=== PATIENT | female | born 1960 | race Caucasian/White ===

== ENCOUNTER → 2025-03-03 15:24 | Outpatient (REF) | payer MEDICARE, OTHER, SELFPAY | LOC: RAD 15:24 | PROVIDERS: ATTENDING PHYSICIAN Nurse Practitioner | DX: S09.90XA Unspecified injury of head, initial encounter (principal) | CPT/HCPCS: 70450 ==

== ENCOUNTER 2025-05-19 18:29 | Emergency (ER) | payer MEDICARE, OTHER, SELFPAY ==
[2025-05-19 18:40] VITALS: BP 185/106
[2025-05-19 18:55] LABS: Hematocrit 34.8 % (37.0-47.0); Hemoglobin 12.8 g/dL (12.0-16.0); Mean Corp Hgb Conc. 36.8 g/dL (33.0-37.0); Mean Corpuscular Volume 91.6 fL (81.0-99.0); Nucleated Red Blood Cells % 0 %; Platelet Count 257 10^3/uL (130-400); Red Cell Dist. Width 13.5 % (11.5-14.5)
[2025-05-19 19:02] LABS: INR 1.02; PT 13.5 Sec (11.4-14.6)
[2025-05-19 19:09] LABS: ALT (SGPT) 19 U/L (0-35); AST (SGOT) 25 U/L (14-36); Albumin 4.9 g/dl (3.5-5.0); Alkaline Phosphatase 76 U/L (38-126); Blood Urea Nitrogen 9 mg/dl (7-17); Calcium 9.3 mg/dl (8.4-10.2); Carbon Dioxide 22 mmol/L (22-30); Chloride 91 mmol/L (98-107); Glucose 101 mg/dl (70-99); Potassium 3.4 mmol/L (3.5-5.1); Sodium 123 mmol/L (135-145); Total Protein 7.6 g/dl (6.3-8.2); eGFR > 60.00
[2025-05-19 19:18] LABS: Troponin I < 0.012 ng/ml
[2025-05-19 20:16] VITALS: BP 166/102
== END 2025-05-19 23:30 | disposition left against medical advice (07) ==
LOC: EMR 18:29
PROVIDERS: EMERGENCY PHYSICIAN Emergency Medicine; FAMILY PHYSICIAN Nurse Practitioner
DX: R42 Dizziness and giddiness (principal); Z53.21 Procedure and treatment not carried out due to patient leaving prior to being seen by health care provider
CPT/HCPCS: 80053; 84484; 85025; 85610; 93005

== ENCOUNTER → 2025-06-02 13:50 | Outpatient (REF) | payer MEDICARE, OTHER, SELFPAY | LOC: HWRCS 13:50 | PROVIDERS: ATTENDING PHYSICIAN Internal Medicine; FAMILY PHYSICIAN Nurse Practitioner | DX: R94.31 Abnormal electrocardiogram [ECG] [EKG] (principal) | CPT/HCPCS: 93306 ==